=== PATIENT | male | born 1950 | race Caucasian/White ===

== ENCOUNTER → 2016-12-15 | Outpatient (CLI) | payer OTHER ==
[2011-01-28 20:24] VITALS: BP 112/75
--- NOTE | 2016-12-15 14:59 | DI ---
RIGHT SHOULDER, 12/15/2016 1:57 PM: Clinical History: Right shoulder pain. Previous Exam: None at this facility. 3 views are submitted. There is no acute soft tissue, osseous, or joint abnormality. There is mild ar throsis of the AC joint and degenerative change of the glenohumeral joint. Small cystic changes have developed in the area of the greater tuberosity. On the AP projection of the right shoulder, the righ t hilum appears prominent. A chest x-ray is recommended for further evaluation. Readin. Degenerative changes are present in the AC joint in the glenohumeral joint. 2. The right infrahilar region appears prominent. Followup with a chest x-ray is recommended.
--- NOTE | 2016-12-15 15:00 | DI ---
LEFT SHOULDER, 12/15/2016 1:57 PM: Clinical History: Left shoulder pain. Previous Exam: None at this facility. 3 views are submitted. There is no acute soft tissue, osseous, or joint abnormality. Small subcortica l cysts are present in the humeral head. Reading: Except for the small cystic changes in the humeral head, the study is normal.
--- NOTE | 2016-12-15 15:00 | DI ---
PA /LATERAL CHEST X-RAY, 12/15/2016 2:32 PM : Clinical History: Prominent right infrahilar region seen on a right shoulder x-ray exam. Previous Exam: None at this facility. There is no acute soft tissue or bony abnormality. Heart size is normal. Lungs are clear. Both on the PA and lateral films, the right infrahilar region is prominent and adenopathy cannot be excluded. Th e left hilum is normal. There are no pulmonary nodules. Readin. The right infrahilar region remains prominent. Right infrahilar adenopathy cannot be excluded. A CT scan of the chest with IV contrast is recommended for followup. 2. There is no acute infiltrate or effusion.
== END ==
LOC: ORTHO 14:42
PROVIDERS: ATTEND Physician Assistant
DX: M25.511 Pain in right shoulder (principal); M25.512 Pain in left shoulder; J98.4 Other disorders of lung; M19.011 Primary osteoarthritis, right shoulder
CPT/HCPCS: 71020; 73030

== ENCOUNTER → 2016-12-16 | Outpatient (CLI) | payer OTHER ==
[2011-01-28 20:24] VITALS: BP 112/75
[2016-12-16 10:43] LABS: BLOOD UREA NITROGEN 28 mg/dL (7-22); CALCIUM 9.1 mg/dL (8.7-10.7); CHLORIDE 104 meq/L (98-112); EST GLOMERULAR FILTRATION > 60 (>60 ml/min/1.73m(2)); GLUCOSE 172 mg/dL (78-110); POTASSIUM 4.9 meq/L (3.8-5.2); SODIUM 138 meq/L (135-145)
--- NOTE | 2016-12-16 12:25 | DI ---
CT CHEST SCAN WITH IV CONTRAST, 12/16/2016 10:10 AM : Clinical History: Abnormal chest x-ray revealed a prominent right infrahilar density. Previous Exam: None at this facility. Comparison is made with the chest x-ray from 12/15/2016. Scans are performed from the base of the neck to the level of the adrenal glands with contrast. 70 ml of Isovue 300 was injected IV. The base of the neck and thoracic inlet are normal. There are no abnormal axillary, supraclavicular, or mediastinal nodes. There is no hilar adenopathy present. The "fullness" of the right infrahilar re gion seen on both views of the chest x-ray from 12/15/2016 represents the silhouette created by the ri t superior pulmonary vein draining into the left atrium. There is no hilar mass. The heart is paige l but there are dense calcifications in the left mainstem, the proximal and distal thirds of the LAD, the proximal portion of the left circumflex artery and scattered throughout the right coronary arter y. The lungs are clear and there are no pulmonary nodules or masses. Both adrenal glands, the spleen, and the visualized portions of the liver and pancreas are normal. READIN. Normal CT chest scan with IV contrast. There is no hilar adenopathy or right infrahilar mass. Th e density seen on the chest x-ray is created by the silhouette of the right superior pulmonary vein d raining into the left atrium. The remainder of the CT scan of the chest is normal. 2. There is coronary artery disease manifested by calcifications in the left mainstem, the LAD, the left circumflex artery, and the right coronary artery.
== END ==
LOC: LAB 09:55
PROVIDERS: ATTEND Internal Medicine
DX: I10 Essential (primary) hypertension (principal); E03.9 Hypothyroidism, unspecified; E78.5 Hyperlipidemia, unspecified; J98.4 Other disorders of lung
CPT/HCPCS: 36415; 71260; 80048; 82565; 84520

== ENCOUNTER → 2017-01-06 | Outpatient (CLI) | payer OTHER ==
[2011-01-28 20:24] VITALS: BP 112/75
[2017-01-06 12:55] LABS: HEMOGLOBIN A1C 6.64 % (4.2-6.0); MEAN BLOOD GLUCOSE (CALC) 135.112 mg/dL
== END ==
LOC: MOB LAB 12:03
PROVIDERS: ATTEND Internal Medicine
DX: E11.9 Type 2 diabetes mellitus without complications (principal)
CPT/HCPCS: 83036

== ENCOUNTER → 2017-01-11 | Outpatient (CLI) | payer OTHER ==
[2011-01-28 20:24] VITALS: BP 112/75
== END ==
LOC: MMPC 11:11
PROVIDERS: ATTEND Internal Medicine
DX: E11.9 Type 2 diabetes mellitus without complications (principal); E78.5 Hyperlipidemia, unspecified; I10 Essential (primary) hypertension; E03.9 Hypothyroidism, unspecified
CPT/HCPCS: 99214

== ENCOUNTER → 2017-02-23 | Outpatient (CLI) | payer OTHER ==
[2011-01-28 20:24] VITALS: BP 112/75
--- NOTE | 2017-02-23 12:31 | DI ---
CERVICAL SPINE SERIES, 02/23/2017 11:23 AM: Clinical History: Neck pain. Previous Exam: None at this facility. Upright AP and lateral and upright lateral flexion and extension views and an upright lateral swimmer 's view are submitted. The vertebral bodies are normal in height and size. There is disc space narrow ing at C5-6 and the remaining disc spaces are of normal height. Posterior alignment is normal in the flexion and neutral position but with extension, there is subluxation posteriorly of C5 on C6 by appr oximately 2 mm indicating there is motion at the C5-6 level. C1 articulates normally with C2 and the occiput. Prevertebral soft tissue planes are normal. Dense calcifications are present in the left car otid bifurcation. Both apices are normal. Reading: Chronic disc space narrowing at C5-6 with subluxation of C5 on C6 posteriorly by 2 mm with extension indicating there is motion at this level.
== END ==
LOC: ORTHO 11:25
PROVIDERS: ATTEND Physician Assistant
DX: M54.2 Cervicalgia (principal); M48.02 Spinal stenosis, cervical region; M47.22 Other spondylosis with radiculopathy, cervical region
CPT/HCPCS: 72050; 99213

== ENCOUNTER → 2017-02-25 | Outpatient (CLI) | payer OTHER ==
[2011-01-28 20:24] VITALS: BP 112/75
--- NOTE | 2017-02-25 11:46 | DI ---
DUPLEX COLOR DOPPLER CAROTID ULTRASOUND, 02/25/2017 9:51 AM: Clinical History: Dense calcifications in the left carotid bulb were noted on a C-spine series from . Previous Exam: None at this facility. Technique: 2D real time imaging is supplemented with duplex color doppler ultrasound imaging. RIGHT CAROTID ARTERY: 2D real time imaging of the right carotid system shows a normal appearance of the right common caroti d artery and carotid bulb. A small calcified plaque is present at the origin of the right internal ca rotid artery. The right external carotid artery has a normal appearance. Peak systolic velocities thr ough the right common carotid, the external carotid, and the internal carotid are 77 cm/s, 67 cm/s, a nd 50 cm/s, respectively. All values correspond to diameter stenoses of 0-49%. LEFT CAROTID ARTERY: 2D real time imaging of the left carotid system shows a normal appearance of the left common carotid artery. Calcified plaques are present in the carotid bulb and at the origin of the left internal solano tid artery. The left external carotid artery has a normal appearance. Peak systolic velocities throug h the left common carotid, the external carotid, and the internal carotid are 99 cm/s, 57 cm/s, and 4 7 cm/s, respectively. All values correspond to diameter stenoses of 0-49%. VERTEBRAL ARTERIES: There is antegrade flow through both vertebral arteries Cardiac rhythm is regular. Peak systolic [place] through the visualized portions of the right and left vertebral arteries are 39 cm/s and 32 cm /s, respectively. Both values correspond to diameter stenoses of 0-49%. Readin. There is no hemodynamically significant stenosis of either carotid system. 2. There is antegrade flow through both vertebral arteries. Cardiac rhythm is regular.
== END ==
LOC: US 09:46
PROVIDERS: ATTEND Physician Assistant
DX: I65.22 Occlusion and stenosis of left carotid artery (principal)
CPT/HCPCS: 93880

== ENCOUNTER → 2017-03-16 | Outpatient (CLI) | payer OTHER ==
[2011-01-28 20:24] VITALS: BP 112/75
== END ==
LOC: MMPC 10:00
PROVIDERS: ATTEND Physician Assistant
DX: M47.22 Other spondylosis with radiculopathy, cervical region (principal); M75.101 Unspecified rotator cuff tear or rupture of right shoulder, not specified as traumatic
CPT/HCPCS: 99214; G0463

== ENCOUNTER → 2017-03-23 | Outpatient (CLI) | payer OTHER ==
[2011-01-28 20:24] VITALS: BP 112/75
--- NOTE | 2017-03-23 13:02 | DI ---
LUMBAR MYELOGRAM, 03/23/2017 10:31 AM: Clinical History: Neck pain Previous Exam: None at this facility. Informed signed consent was obtained prior to the procedure. The patient was informed of benefits and risks, to include but not be limited, to allergies to medications (skin preparation agents, local an esthetic, and contrast agent), infection, and "spinal" headaches. The lower back was prepped with Betadine solution and alcohol. 1% lidocaine without epinephrine was used for intradermal and subcutaneous local anesthesia. Under fl uoroscopic guidance, a 22 gauge spinal needle was then introduced into the spinal canal from the left paraspinal approach at the level of L2. A single pass was performed and this revealed droplets of clear colorless CSF. 15 mL of Omipaque 300 was injected into the spinal canal with fluoroscopic monitoring. Spot films of the lumbar spine were obtained followed by a cross table lumbar spine view. The patient tolerated the procedure well and w as transferred to the CT scan suite for the CT myelogram. Following the CT scan, the patient was observed in the department for approximately 1 hour. The [facility] nt was then discharged home and was instructed to minimize activity for the rest of the day. The johnny ent was also instructed to push fluids for the remainder of the day and to sleep on an extra pillow w ith the head up if possible. The patient was advised to watch for signs of an infection (including but not limited to redness, swe lling, fever) or an unusually severe headache. The patient was instructed to either contact the x-ray department directly or to report to the Emergency Room immediately if problems arise. Reading: Successful myelogram. CT pending.
--- NOTE | 2017-03-23 13:08 | DI ---
CT CERVICAL SPINE W/CONTRAST,03/23/2017 10:29 AM: Clinical History: Neck pain. Previous Exam: None at this facility. Findings: Multiple helically acquired CT images are obtained through the cervical spine after the intrathecal a dministration of iodinated contrast. Bony alignment is anatomic with some mild straightening of the cervical spine centered at the C5/6 an d C6/7 levels. There are uncovertebral joint osteophytes noted and broad-based disc bulges. There are also some uncovertebral joint osteophytes noted at the C2/3 level. The posterior fossa is unremarkable. The prevertebral soft tissues are unremarkable. Individual intervertebral disc spaces: C2/C3: Uncovertebral joint osteophytes and broad-based disc bulge contributing to mild central canal stenosis without neural foraminal narrowing. C3/4: There is a broad-based disc bulge and some uncovertebral joint osteophyte formation at this lev el contributing to mild central canal stenosis without neural foraminal narrowing. C4/5: There is a broad-based disc bulge with some uncovertebral joint osteophytes contributing to mil d central canal stenosis without neural foraminal narrowing. C5/6: There is disc desiccation, broad-based disc bulge and uncovertebral joint osteophyte formation contributing to moderate central canal stenosis and mild bilateral neural foraminal narrowing. C6/7: There is disc desiccation and a broad-based disc bulge with uncovertebral joint osteophyte form ation contributing to mild central canal stenosis and mild bilateral neural foraminal narrowing. C7/T1: There is mild degenerative disc disease and uncovertebral joint osteophytes contributing to mi ld central canal stenosis. Impression: C3/4: There is a broad-based disc bulge and some uncovertebral joint osteophyte formation at this lev el contributing to mild central canal stenosis without neural foraminal narrowing. C4/5: There is a broad-based disc bulge with some uncovertebral joint osteophytes contributing to mil d central canal stenosis without neural foraminal narrowing. C5/6: There is disc desiccation, broad-based disc bulge and uncovertebral joint osteophyte formation contributing to moderate central canal stenosis and mild bilateral neural foraminal narrowing. C6/7: There is disc desiccation and a broad-based disc bulge with uncovertebral joint osteophyte form ation contributing to mild central canal stenosis and mild bilateral neural foraminal narrowing. C7/T1: There is mild degenerative disc disease and uncovertebral joint osteophytes contributing to mi ld central canal stenosis.
== END ==
LOC: RAD 03-18 14:00
PROVIDERS: ATTEND Physician Assistant
DX: M54.2 Cervicalgia (principal)
CPT/HCPCS: 72126; 72240